=== PATIENT | female | born 1945 | race Caucasian/White ===

== ENCOUNTER → 2017-02-13 | Outpatient (CLI) | payer OTHER ==
[2015-05-19 10:27] VITALS: BP 119/77
[~2017-02-13] MED LIST: ATORVASTATIN CA80 MG PO; FENO54TA PO; HYDR25TA9 PO; INSU100C4 SQ; INSU100V13 SQ; LEVO175T5 PO; LIRA0.6P2 SQ; LISI10TA2 PO; METF10002 PO; PARO40TA3 PO; ZOLP10TA4 PO
--- NOTE | 2017-02-13 12:39 | CARD ---
APPROVED REPORT EXAM: Two-dimensional and M-mode echocardiogram with Doppler and color Doppler. Other Information Quality : GoodHR: 62bpm Rhythm : NSR INDICATION Abnormal ECG 2D DIMENSIONS RVDd2.5 (2.9-3.5cm)Left Atrium(2D)4.5 (1.6-4.0cm) IVSd1.2 (0.7-1.1cm)Aortic Root(2D)2.4 (2.0-3.7cm) LVDd4.5 (3.9-5.9cm)LVOT Diameter2.4 (1.8-2.4cm) PWd1.2 (0.7-1.1cm)LVDs3.1 (2.5-4.0cm) FS (%) 30.7 %SV53.2 ml LVEF(%)58.4 (>50%) Aortic Valve AoV Peak Anthony.282.0cm/sAoV VTI66.3cm AO Peak GR.31.8mmHgLVOT Peak Anthony.112.3cm/s AO Mean GR.19mmHgAVA (VMAX)1.85cm2 Mitral Valve MV E Glqeihfw845.9cm/sMV E Peak Gr.8mmHg MV DECEL [id number] A Kjmjwnce961.0cm/s MV E Mean Gr.4mmHgE/A Ratio0.9 MV A Toxmoiwa988ur Pulmonary Valve PV Peak Zytbjooc79.0cm/s Tricuspid Valve TR P. Jdarldiq974pd/sTR Peak Gr.34mmHg Pulmonary Vein S1 Swbpgdxv58.1cm/sD2 Mzpxqkri74.6cm/s PVa kfnyisnf80ixfn LEFT VENTRICLE The left ventricle is normal size. There is mild concentric left ventricular hypertrophy. The left ve ntricular systolic function is normal and the ejection fraction is within normal range. The Ejection Fraction is 60-65%. There is normal LV segmental wall motion. Transmitral Doppler flow pattern is Gra de I-abnormal relaxation pattern. RIGHT VENTRICLE The right ventricle is normal size. There is normal right ventricular wall thickness. The right ventr icular systolic function is normal. ATRIA The left atrium is moderately dilated. The right atrium size is normal. The interatrial septum is int act with no evidence for an atrial septal defect or patent foramen ovale as noted on 2-D or Doppler i maging. AORTIC VALVE The aortic valve is severely sclerotic. The aortic valve is trileaflet. Doppler and Color Flow reveal ed mild aortic regurgitation. Calculated aortic valve area is 1.8 cm2 with maximum pressure gradient of 32 mmHg and mean pressure gradient of 19 mmHg. *Suspect that aortic stenosis is more moderate, dop pler tracings are suboptimal. MITRAL VALVE Mitral annular calcification is moderate. There is no evidence of mitral valve prolapse. There is no mitral valve stenosis. Doppler and Color Flow revealed mild mitral regurgitation. TRICUSPID VALVE Doppler and Color Flow revealed trace tricuspid regurgitation. The pulmonary artery systolic pressure is estimated at 37 mmHg. There is mild pulmonary hypertension. PULMONIC VALVE Doppler and Color Flow revealed no pulmonic valvular regurgitation. There is no pulmonic valvular tashi nosis. GREAT VESSELS The aortic root is normal in size. The ascending aorta is normal in size. The pulmonary artery is nor mal. The IVC is normal in size and collapses >50% with inspiration. PERICARDIAL EFFUSION There is no evidence of significant pericardial effusion. Critical Notification Critical Value: No <Conclusion> The left ventricular systolic function is normal and the ejection fraction is within normal range. Th e Ejection Fraction is 60-65%. There is normal LV segmental wall motion. The left atrium is moderately dilated. Calculated aortic valve area is 1.8 cm2 with maximum pressure gradient of 32 mmHg and mean pressure g radient of 19 mmHg. *Suspect that aortic stenosis is more moderate, doppler tracings are suboptimal. Doppler and Color Flow revealed mild mitral regurgitation. Consider ULICES or repeat TTE if clinically indicated.
== END | disposition home or self-care (01) ==
LOC: ECHO 07:59
PROVIDERS: ATTEND Internal Medicine Cardiovascular Disease
DX: I35.0 Nonrheumatic aortic (valve) stenosis (principal); I51.7 Cardiomegaly; I35.1 Nonrheumatic aortic (valve) insufficiency; I34.0 Nonrheumatic mitral (valve) insufficiency; I27.2 Other secondary pulmonary hypertension
CPT/HCPCS: 93306

== ENCOUNTER → 2017-03-22 | Outpatient (CLI) | payer OTHER ==
[2015-05-19 10:27] VITALS: BP 119/77
[~2017-03-22] MED LIST changes: +METF-620 PO; -METF10002 PO; +REGADENOSON 0.4 MG/5 ML DISP.SYRIN. IV ONE
--- NOTE | 2017-03-22 10:36 | RAD ---
APPROVED REPORT Patient Location : OUT-PATIENT Indications Lower Extremity Pain : Bilateral Varicose Veins Skin Changes HISTORY OF SIGNIFICANT REFLUX SEEN IN 07/2013. RECOMMENDED ABLATION. PT NEVER SCHEDULED. Deep System Deep Venous Thrombosis present : No Deep Venous Reflux present : Bilateral Greater Saphenous Veins (GSV) Significant venous relux noted in the RIGHT GSV at the following levels : ALL Significant venous relux noted in the LEFT GSV at the following levels : ALL Accessory Veins Right Anterior Accessory Vein : Present : Yes Leftt Anterior Accessory Vein : Present : Yes Right Posterior Accessory Vein : Present : Yes Left Posterior Accessory Vein : Present : Yes Findings Burnett scale images of the bilateral greater and lesser saphenous veins were obtained in limited fashio n and they do not reveal any evidence of thrombus. The right great saphenous vein measures approximately 6 mm at the saphenofemoral junction and has a r eflux time of 3 seconds. The left great saphenous vein measures approximately 8 mm at the saphenofemo ral junction and has a reflux time of 3 seconds. The bilateral lesser saphenous veins are not clearly visualized but spectral waveforms are suggestive of reflux of greater than 2 seconds. Multiple bilateral perforators are noted in the lower extremities with perforators on the right side approximately 20 cm up in 7 cm back as well as 32 cm up in 1070 his back. On the left there are perfo rators 17 cm up in 7 cm back as well as 34 cm up in 11 cm back with diameters of approximately 2-3 mm . Critical Notification Critical Value: No <Conclusion> Venous reflux disease noted in the bilateral greater saphenous veins and lesser saphenous veins. Multiple perforators noted bilaterally.
--- NOTE | 2017-03-22 14:38 | RAD ---
APPROVED REPORT Test Type: Pharmacological Stress Nurse/Tech: ruben mejia Test Indications: SOA Cardiac History: HTN, SEE EHR Medications: SEE EHR Medical History: DIABETES, SEE EHR Resting ECG: SR Resting Heart Rate: 68 bpm Resting Blood Pressure: 133/75mmHg Pretest Chest Pain: No chest pain Nurse/Tech Notes LUNG SOUNDS CLEAR, S1S2 WNL. Consent: The procedure was explained to the patient in lay terms. Informed consent was witnessed. Elliot eout was entered into [employer]. History and Stress Test performed by SUMAYA Crane Pharm. Details Pharmacologic stress testing was performed using 0.4mg per 5ml of regadenoson given intravenously ove r 7-10 seconds. Stress Symptoms FACIAL FLUSHING, HEADACHE. POST EXERCISE Reason for Termination: Infusion complete Max HR: 117 bpm Max Blood Pressure: 133/75mmHg Chest Pain: No. Arrhythmia: No. ST Change: No. INTERPRETATION Stress EKG Conclusion: Baseline EKG showed sinus rhythm. No ischemic changes at peak stress. No arr hythmias. Imaging Protocol IMAGE PROTOCOL: Rest Tc-99m/stress Tc-99m 1 day Rest: Stress: Viability: Radiopharm.Tc99m SonmmksypBt90z Sestamibi Wiej15fAu 35.1mCi Duration 15min. 10min. Img Date 03/22/2017 03/22/2017 Inj-Img Penz56kxf. 60min. Rest Admin Site:IV - Right HandAdministrator:RT Stephanie (R)(N) Stress Admin Site: IV - Right HandAdministrator: SUMAYA Crane STRESS DATA End Diast. Vol.105.0mlAv. Heart Rate75.0bpm End Syst. Vol.24.0mlCO Index BSA0.0L/min Myocardial Jvzw824.0gEject. Cpqghwkl57.0% Stress Rates Pk. Fill Rate3.83EDV/secLVtime Pk. Fill 233.63msec Pk. Empty Rate4.67ESV/secLVtime Pk. Axpou429.93msec 11/28 Pk. Fill1.07EDV/sec Stress Scores Regional WT1.00Summed WT12.00 Regional WM0.00Summed WM0.00 Study quality was good. Left Ventricular size was Normal at Rest and Stress. Lung uptake was Normal. Left Ventricular ejection fraction is 77%. The rest and stress images show normal perfusion, normal contraction and thickening. LV Perf. Quant 17 Seg. SSS7.00 17 Seg. SRS0.00 17 Seg. SDS7.00 Stress Defect Extent (% LAD)1.30Rest Defect Extent (% LAD)0.00Rev. Defect Extent (% LAD)1.30 Stress Defect Extent (% LCX) 55.00Rest Defect Extent (% LCX)0.00Rev. Defect Extent (% LCX)55.00 Stress Defect Extent (% RCA)0.00Rest Defect Extent (% RCA)0.00Rev. Defect Extent (% RCA)0.00 Stress Defect Extent (% MARTHA)10.20Rest Defect Extent (% MARTHA)0.00Rev. Defect Extent (% MARTHA)10.20 Conclusion 1. Regadenoson cardioisotope stress test did not show any evidence of ischemia or infarct. 2. Normal left ventricular systolic function with ejection fraction calculated at 77%. 3. Low risk for cardiac events.
== END | disposition home or self-care (01) ==
LOC: US 08:26
PROVIDERS: ATTEND Internal Medicine Cardiovascular Disease
DX: R06.09 Other forms of dyspnea (principal); I87.2 Venous insufficiency (chronic) (peripheral); I10 Essential (primary) hypertension
CPT/HCPCS: 78452; 93017; 93970; 96374; 96375; 96376; A9500; J2785

== ENCOUNTER 2017-07-05 15:52 | Emergency (ER) | payer OTHER ==
[~2017-07-05] VITALS: Ht 172.7 cm; Wt 98.9 kg
[~2017-07-05 15:52] MED LIST changes: -REGADENOSON 0.4 MG/5 ML DISP.SYRIN. IV ONE
--- NOTE | 2017-07-05 17:13 | PHYS DOC ---
Past Medical History Past Medical History: Anxiety, Diabetes-Type II, High Cholesterol, Hypertension Past Surgical History: Hysterectomy Additional Past Surgical Histo: thyroid Alcohol Use: None Drug Use: None Adult General Chief Complaint Chief Complaint: [facility] PA[facility] HPI Patient is a 71 year old female with history of hypertension, high cholesterol , diabetes type 2, who presents with moderate bilateral low back pain radiating into the left lower extremity that began a week ago after she lifted a case of Pepsi, patient denies any numbness or tingling to bilateral lower extremities. Patient states she followed up with a chiropractor. She states she was seen by the PCP a couple days ago and was instructed to return to the ED if she develops any loss of bowel/bladder function. Patient states she currently cannot make it to the bathroom. She states every time she attempts to get to the bathroom she avoids on herself and has a bowel movement on herself. She states she can feel she has to use the bathroom but pain is limiting her efforts to make it to the bathroom on time. She is denying any numbness or tingling to perineum area. Patient also states she is unable to stand up straight. She states she would like to find as is why the symptoms are present and on going for one week. She states she has tried taking hydrocodone with no relief. PCP Gareth Murrieta. Review of Systems Review of Systems Constitutional: Denies fever or chills [] Eyes: Denies change in visual acuity, redness, or eye pain [] HENT: Denies nasal congestion or sore throat [] Respiratory: Denies cough or shortness of breath [] Cardiovascular: No additional information not addressed in HPI [] GI: Denies abdominal pain, nausea, vomiting, bloody stools or diarrhea [] : Denies dysuria or hematuria [] Musculoskeletal: Back pain with cauda equina syndrome symptoms. Integument: Denies rash or skin lesions [] Neurologic: Denies headache, focal weakness or sensory changes [] Endocrine: Denies polyuria or polydipsia [] Current Medications Current Medications Allergies Allergies Allergies Coded Allergies Type Severity Reaction Last Updated Verified No Known Allergies Allergy Unknown 05/19/15 Yes Physical Exam Physical Exam Constitutional: Well developed, well nourished, no acute distress, non-toxic appearance. [] HENT: Normocephalic, atraumatic, bilateral external ears normal, oropharynx moist, no oral exudates, nose normal. [] Eyes: PERRLA, EOMI, conjunctiva normal, no discharge. [] Neck: Normal range of motion, no tenderness, supple, no stridor. [] Cardiovascular:Heart rate regular rhythm, no murmur [] Lungs & Thorax: Bilateral breath sounds clear to auscultation [] Abdomen: Bowel sounds normal, soft, no tenderness, no masses, no pulsatile masses. [] Skin: Warm, dry, no erythema, no rash. [] Back: Diffuse paraspinal muscle tenderness to the bilateral lumbar spine, worse on the left SI joint, no midline lumbar spine tenderness, no CVA tenderness. Rectal exam with normal rectal tone Extremities: No tenderness, no cyanosis, no clubbing, ROM intact, no edema. [] Neurologic: Alert and oriented X 3, normal motor function, normal sensory function, no focal deficits noted. [] Psychologic: Affect normal, judgement normal, mood normal. [] Current Patient Data Vital Signs Vital Signs Date Time Temp Pulse Resp B/P (MAP) Pulse Ox O2 Delivery O2 Flow Rate FiO2 07/05/17 17:08 98.1 70 20 97 Room Air 98.1 EKG EKG [] Radiology/Procedures Radiology/Procedures [] Course & Med Decision Making Course & Med Decision Making Pertinent Labs and Imaging studies reviewed. (See chart for details) Patient is in the ED with complaints of low back pain that began a week ago after lifting a case of Pepsi. She states for the last couple days (2) she has developed bowel and bladder incontinence. She states she is not able to walk up Straight. We did attempt to call patient's PCP with no success. 17:[address] Livingston who is in the Ed to see her. Rectal exam was done with normal rectal tone. MRI ordered and Consult done for neurosurgery. 17:[address] Little who will f/u with patient. Dr. Little Neurosurgery came and saw patient and requested we transfer her out because our MRI machine is down. 19:15 Spoke with transfer line 19:[address] Ribeiro neurosurgeon at [facility], he states we need to do a CT myelogram first, then we can call him with results. He states one neurosurgeon should be able to know how to take care of this patient. 19:[address] Little. We agreed we should try a different hospital because we do not have a MRI and urologist. Neither is a CT myelogram the appropriate care for this patient. 20: 05 Call placed at [facility] transfer line 20:20 Dr. Flanagan accepted patient at [facility]. Transfer by EMS Dragon Disclaimer Dragon Disclaimer This electronic medical record was generated, in whole or in part, using a voice recognition dictation system. Departure Departure Impression: Primary Impression: Acute low back pain Additional Impression: Cauda equina syndrome Disposition: 05 TRANSFER OTHER Condition: STABLE Referrals: EVITA PATRICK (PCP) Problem Qualifiers Primary Impression: Acute low back pain Back pain laterality: right Sciatica presence: with sciatica Sciatica laterality: sciatica of left side Qualified Codes: M54.42 - Lumbago with sciatica, left side ABDIEL DORSEY BR[employer]GE GAME DIRECTOR Jul 05, 2017 17:13
[2017-07-05] MEDS ORDERED: ACETAMINOPHEN 325 MG TABLET. PO PRN (17:45)
[2017-07-05] MEDS ORDERED: DEXTROSE 50% 25 GM / 50ML DISP.SYRIN. IV PRN (17:45)
[2017-07-05] MEDS ORDERED: ONDANSETRON PF 4 MG/2 ML VIAL. IV PRN (17:45)
[2017-07-05] MEDS ORDERED: diazePAM 5 MG TABLET PO PRN (18:00)
[2017-07-05] MEDS: MORPHINE SULFATE 4 MG/ML DISP.SYRIN. IV PRN ×2 (18:19→19:50)
[2017-07-05 18:21] LABS: BASO # 0.1 x10^3/uL (0.0-0.2); BASO % 1 % (0-3); EOS % 1 % (0-3); HEMATOCRIT 46.9 % (36.0-47.0); HEMOGLOBIN 15.5 g/dL (12.0-15.5); LYMPH # 3.3 x10^3/uL (1.0-4.8); LYMPH % 23 % (24-48); MEAN CORPUSCULAR HEMOGLOBIN 28 pg (25-35); MEAN CORPUSCULAR HGB CONC 33 g/dL (31-37); MEAN CORPUSCULAR VOLUME 83 fL (79-100); MONO % 6 % (0-9); NEUT % 70 % (31-73); PLATELET COUNT 306 x10^3/uL (140-400); RED BLOOD COUNT 5.63 x10^6/uL (3.50-5.40); WHITE BLOOD COUNT 14.5 x10^3/uL (4.0-11.0)
[2017-07-05 18:31] LABS: INR 0.9 (0.8-1.1); PROTHROMBIN TIME PATIENT 11.4 SEC (11.7-14.0)
[2017-07-05 18:33] LABS: CALCIUM 10.4 mg/dL (8.5-10.1); CREATININE 0.9 mg/dL (0.6-1.0); GFR 62.1; POTASSIUM 3.4 mmol/L (3.5-5.1)
[2017-07-05] MEDS ORDERED: DEXAMETHASONE SOD PHOS 20 MG/5 ML VIAL. IV STA (18:42)
[2017-07-05] MEDS ORDERED: MORPHINE SULFATE 4 MG/ML DISP.SYRIN. ONE (19:45)
[2017-07-05] MEDS ORDERED: MORPHINE SULFATE 4 MG/ML DISP.SYRIN. IV PRN (20:30)
[2017-07-05 20:32] VITALS: BP 158/74
--- NOTE | 2017-07-05 21:35 | HP ---
ADMIT DATE: 07/05/2017 CHIEF COMPLAINT: Back pain. HISTORY OF PRESENT ILLNESS: The patient is a pleasant elderly female who has acute on chronic back pain. Now, she states she has some problems with urinary incontinence and possible bowel incontinence as well. I have discussed the case with the ER nurse practitioner. We are going to admit the patient and consult Neurosurgery. PAST MEDICAL HISTORY: Anxiety, depression, hyperlipidemia, hypertension, hysterectomy, thyroid disease. ALLERGIES: None. FAMILY HISTORY: Hypertension. SOCIAL HISTORY: She does not drink, smoke or take drugs. MEDICATIONS: Reviewed. REVIEW OF SYSTEMS: GENERAL: No history of weight change, weakness or fevers. SKIN: No bruising, hair changes or rashes. EYES: No blurred, double or loss of vision. NOSE AND THROAT: No history of nosebleeds, hoarseness or sore throat. HEART: No history of palpitations, chest pain or shortness of breath on exertion. LUNGS: Denies cough, hemoptysis, wheezing or shortness of breath. GASTROINTESTINAL: Denies changes in appetite, nausea, vomiting, diarrhea or constipation. GENITOURINARY: She complains of incontinence. NEUROLOGIC: She complains of weakness. PSYCHIATRIC: No history of panic, anxiety or depression. ENDOCRINE: No history of heat or cold intolerance, polyuria or polydipsia. EXTREMITIES: Denies muscle weakness, joint pain, pain on walking or stiffness. PHYSICAL EXAMINATION: VITAL SIGNS: Temperature afebrile, pulse , respirations 18, blood pressure 166/79. GENERAL: She is alert. HEART: Normal S1, S2. LUNGS: Clear. ABDOMEN: Soft, positive bowel sounds. EXTREMITIES: Trace edema. SKIN: No rashes. ENDOCRINE: No thyromegaly. LYMPHATICS: No cervical nodes. HEMATOPOIETIC: No bruising. ASSESSMENT AND PLAN: Acute on chronic back pain with radiculopathy and possible early cauda equina syndrome. We are going to admit the patient and consult Neurosurgery. Continue home medicines, PT/OT. ELDER MCCARTY DO DR: GEOVANNA/jey JOB#: [id number] / [id number]
== END 2017-07-05 21:10 | disposition short-term general hospital (02) ==
LOC: ER 15:52 → 6 SOUTH 17:15 → UNDOADMIN 17:15 → ER 18:30 → UNDODISIN 19:15 → ER 21:10
DX: M54.42 Lumbago with sciatica, left side (principal); G83.4 Cauda equina syndrome; F41.9 Anxiety disorder, unspecified; E11.9 Type 2 diabetes mellitus without complications; E78.00 Pure hypercholesterolemia, unspecified; I10 Essential (primary) hypertension; E07.9 Disorder of thyroid, unspecified; E78.5 Hyperlipidemia, unspecified; F32.9 Major depressive disorder, single episode, unspecified; G89.29 Other chronic pain; Z90.710 Acquired absence of both cervix and uterus
CPT/HCPCS: 36415; 80048; 85027; 85610; 85730; 96374; 96375; 96376; 99285; J1100; J2270

== ENCOUNTER → 2017-09-19 | Outpatient (CLI) | payer OTHER ==
--- NOTE | 2017-09-19 16:58 | RAD ---
APPROVED REPORT Bilateral Lower Extremity Venous Study for DVT Patient Location: OUT-PATIENT Indications S/P B/L GSV ABLATIONS AND LT LSV ABLATION Vein Imaging (Right) CFV (R): Compressible SFJ (R): Compressible FEM (R): Compressible POP (R): Compressible DFV (R): Compressible PTV (R): Spontaneous Peroneals (R): Spontaneous Vein Imaging (Left) CFV (L): Compressible SFJ (L): Compressible FEM (L): Compressible POP (L): Compressible DFV (L): Compressible PTV (L): Spontaneous Peroneals (L): Spontaneous Doppler Evaluation (Right) CFV (R): Spontaneous POP (R):Spontaneous Doppler Evaluation (Left) CFV (L):Spontaneous POP (L):Spontaneous Findings Grayscale images of the bilateral greater saphenous veins do not reveal any evidence of flow and ther e is thrombus noted consistent with recent ablation. The bilateral saphenofemoral junctions do not reveal any evidence of thrombus extension from the grea t saphenous vein. The common femoral vein, superficial femoral vein and popliteal veins appear to be compressible and do not reveal any evidence of thrombus on antunez scale images bilaterally. The below-k nee veins are not well visualized but appears so spontaneous flow. Otherwise color Doppler and spectr al imaging does not reveal any obstruction to flow in the deep venous system of the lower extremities . Critical Notification Critical Value: No <Conclusion> Negative for DVT in the bilateral lower extremities. Successful bilateral great saphenous vein ablation. Successful left lesser saphenous vein ablation.
== END | disposition home or self-care (01) ==
LOC: US 10:57
PROVIDERS: ATTEND Internal Medicine Cardiovascular Disease
DX: I82.493 Acute embolism and thrombosis of other specified deep vein of lower extremity, bilateral (principal)
CPT/HCPCS: 93970

== ENCOUNTER → 2018-02-27 | Outpatient (CLI) | payer OTHER | END | disposition home or self-care (01) | LOC: KCIC MRI 12:10 | DX: M51.37 Other intervertebral disc degeneration, lumbosacral region (principal); M43.16 Spondylolisthesis, lumbar region | CPT/HCPCS: 72148 ==

== ENCOUNTER → 2018-04-25 | Outpatient (CLI) | payer OTHER | END | disposition home or self-care (01) | LOC: KCIC US 07:50 | DX: K76.0 Fatty (change of) liver, not elsewhere classified (principal); R16.0 Hepatomegaly, not elsewhere classified | CPT/HCPCS: 76700 ==

== ENCOUNTER → 2018-05-27 | Outpatient (CLI) | payer OTHER ==
[~2018-05-27] MED LIST changes: -ATORVASTATIN CA80 MG PO; -FENO54TA PO; +GELATIN SPONGE SIZE 12-7MM SPONGE.; -HYDR25TA9 PO; -INSU100C4 SQ; -INSU100V13 SQ; -LEVO175T5 PO; +LIDOCAINE WITH 8.4% SOD BICARB 3 ML DISP.SYRIN.; -LIRA0.6P2 SQ; -LISI10TA2 PO; -METF-620 PO; +MIDAZOLAM HCL/PF 2 MG/2 ML VIAL.; -PARO40TA3 PO; -ZOLP10TA4 PO; +fentaNYL PF VIAL 100 MCG/2 ML VIAL
[2018-05-27 09:25] LABS: ADD MAN DIFF? NO
[2018-05-27 09:27] LABS: BASO % 0 % (0-3); EOS # 0.1 x10^3/uL (0.0-0.7); EOS % 1 % (0-3); HEMATOCRIT 32.5 % (36.0-47.0); HEMOGLOBIN 10.8 g/dL (12.0-15.5); LYMPH # 1.1 x10^3/uL (1.0-4.8); LYMPH % 11 % (24-48); MEAN CORPUSCULAR HEMOGLOBIN 27 pg (25-35); MEAN CORPUSCULAR HGB CONC 33 g/dL (31-37); MEAN CORPUSCULAR VOLUME 80 fL (79-100); MONO # 0.6 x10^3/uL (0.0-1.1); MONO % 6 % (0-9); NEUT # 8.1 x10^3uL (1.8-7.7); NEUT % 81 % (31-73); PLATELET COUNT 306 x10^3/uL (140-400); RED BLOOD COUNT 4.05 x10^6/uL (3.50-5.40); RED CELL DISTRIBUTION WIDTH 14.8 % (11.5-14.5)
[2018-05-27 09:42] LABS: INR 1.2 (0.8-1.1); PARTIAL THROMBOPLASTIN TIME 28 SEC (24-38); PROTHROMBIN TIME PATIENT 14.3 SEC (11.7-14.0)
[2018-05-27] MEDS: GELATIN SPONGE SIZE 12-7MM SPONGE. TP (10:15)
[2018-05-27] MEDS: MIDAZOLAM HCL/PF 2 MG/2 ML VIAL. IV (10:24)
[2018-05-27] MEDS: fentaNYL PF VIAL 100 MCG/2 ML VIAL IV (10:25)
[2018-05-27] MEDS: LIDOCAINE WITH 8.4% SOD BICARB 3 ML DISP.SYRIN. IJ (10:25)
== END ==
LOC: INTRAD 08:37
DX: C78.7 Secondary malignant neoplasm of liver and intrahepatic bile duct (principal); C80.1 Malignant (primary) neoplasm, unspecified; K72.90 Hepatic failure, unspecified without coma; I10 Essential (primary) hypertension; K21.9 Gastro-esophageal reflux disease without esophagitis; Z90.710 Acquired absence of both cervix and uterus; Z90.721 Acquired absence of ovaries, unilateral; M19.90 Unspecified osteoarthritis, unspecified site; E11.9 Type 2 diabetes mellitus without complications; E03.9 Hypothyroidism, unspecified; F32.9 Major depressive disorder, single episode, unspecified; F41.9 Anxiety disorder, unspecified; F17.200 Nicotine dependence, unspecified, uncomplicated; D64.9 Anemia, unspecified; Z98.890 Other specified postprocedural states; Z79.4 Long term (current) use of insulin; Z79.899 Other long term (current) drug therapy
CPT/HCPCS: 36415; 47000; 76942; 85025; 85610; 85730; 88307; 88341; 88342; 99152; 99153; J2250; J3010

== ENCOUNTER 2018-06-18 07:01 | Observation (INO) | payer OTHER ==
[~2018-06-18] VITALS: Ht 172.7 cm; Wt 81.2 kg
[2018-06-18] VITALS (32 sets, daily range): BP systolic 90–154; BP diastolic 43–89
[~2018-06-18 07:01] MED LIST changes: +ALPR0.254 PO; +ATORVASTATIN CA80 MG PO; +DRON5CAP2 PO; +FENO54TA PO; -GELATIN SPONGE SIZE 12-7MM SPONGE.; +HYDR25TA9 PO; +INSU100C4 SQ; +INSU100V13 SQ; +LEVO175T5 PO; -LIDOCAINE WITH 8.4% SOD BICARB 3 ML DISP.SYRIN.; +LIRA0.6P2 SQ; +LISI10TA2 PO; +METF10003 PO; -MIDAZOLAM HCL/PF 2 MG/2 ML VIAL.; +OMEP40CA5 PO; +OXYC-323 PO; +OXYC15TA PO; +PARO40TA3 PO; +PROC5TAB14 PO; +TIZA4TAB PO; +ZOLP10TA4 PO; -fentaNYL PF VIAL 100 MCG/2 ML VIAL
[2018-06-18 07:57] LABS: BASO # 0.1 x10^3/uL (0.0-0.2); BASO % 0 % (0-3); EOS # 0.1 x10^3/uL (0.0-0.7); EOS % 1 % (0-3); HEMOGLOBIN 12.1 g/dL (12.0-15.5); LYMPH # 1.4 x10^3/uL (1.0-4.8); LYMPH % 9 % (24-48); MEAN CORPUSCULAR HEMOGLOBIN 26 pg (25-35); MEAN CORPUSCULAR HGB CONC 32 g/dL (31-37); MEAN CORPUSCULAR VOLUME 81 fL (79-100); MONO # 0.9 x10^3/uL (0.0-1.1); MONO % 6 % (0-9); NEUT # 12.7 x10^3uL (1.8-7.7); NEUT % 84 % (31-73); PLATELET COUNT 306 x10^3/uL (140-400); RED CELL DISTRIBUTION WIDTH 17.1 % (11.5-14.5); WHITE BLOOD COUNT 15.2 x10^3/uL (4.0-11.0)
[2018-06-18] MEDS ORDERED: IOHEXOL 240 MG/ML 50ML VIAL. ONE (08:00)
[2018-06-18] MEDS ORDERED: LIDOCAINE WITH 8.4% SOD BICARB 3 ML DISP.SYRIN. ONE (08:00)
[2018-06-18] MEDS ORDERED: LIDOCAINE 2% 20 ML VIAL. ONE (08:00)
[2018-06-18 08:04] LABS: PROTHROMBIN TIME PATIENT 13.8 SEC (11.7-14.0)
[2018-06-18] MEDS ORDERED: fentaNYL PF VIAL 100 MCG/2 ML VIAL ONE ×2 (08:08→10:10)
[2018-06-18] MEDS ORDERED: MIDAZOLAM HCL/PF 2 MG/2 ML VIAL. ONE (08:08)
[2018-06-18] MEDS ORDERED: fentaNYL PF VIAL 100 MCG/2 ML VIAL IV ONE (08:15)
[2018-06-18] MEDS ORDERED: IOHEXOL 240 MG/ML 50ML VIAL. IJ ONE (08:15)
[2018-06-18] MEDS ORDERED: MIDAZOLAM HCL/PF 2 MG/2 ML VIAL. IV ONE (08:15)
[2018-06-18 08:16] LABS: CALCIUM 8.8 mg/dL (8.5-10.1); CREATININE 1.3 mg/dL (0.6-1.0); GFR 40.5; POTASSIUM 3.6 mmol/L (3.5-5.1)
[2018-06-18] MEDS ORDERED: CONTRAST GIVEN. MC PRN (08:30)
[2018-06-18] MEDS ORDERED: LIDOCAINE WITH 8.4% SOD BICARB 3 ML DISP.SYRIN. IJ ONE (08:45)
[2018-06-18] MEDS ORDERED: ETHYL ALCOHOL 98% 5 ML VIAL. IJ ONE (09:00)
[2018-06-18] MEDS ORDERED: LIDOCAINE 2% 20 ML VIAL. IJ ONE (10:30)
[2018-06-18] MEDS ORDERED: oxyCODONE IR 5 MG TABLET PO PRN ×2 (11:45→14:00)
[2018-06-18] MEDS ORDERED: MAG HYDROX/ALUMINUM HYD/SIMETH 30 ML ORAL.SUSP PO PRN (11:45)
[2018-06-18] MEDS ORDERED: ACETAMINOPHEN 325 MG TABLET. PO PRN (11:45)
[2018-06-18] MEDS ORDERED: PROCHLORPERAZINE 10 MG/2 ML VIAL. IV PRN (11:45)
[2018-06-18] MEDS ORDERED: PROCHLORPERAZINE 25 MG SUPP.RECT. PR PRN (11:45)
[2018-06-18] MEDS: IV NORMAL SALINE 1000ML BAG 1,000 ML IV SCH ×2 (11:45→20:55)
[2018-06-18] MEDS ORDERED: ONDANSETRON PF 4 MG/2 ML VIAL. IV PRN (11:45)
[2018-06-18] MEDS ORDERED: MAGNESIUM HYDROXIDE 2,400 MG/30 ML ORAL.SUSP. PO PRN (11:45)
[2018-06-18] MEDS ORDERED: CALCIUM CARBONATE 500 MG TAB.CHEW PO PRN (11:45)
[2018-06-18] MEDS ORDERED: IBUPROFEN 400 MG TABLET. PO PRN (11:45)
[2018-06-18] MEDS ORDERED: MORPHINE SULFATE 2 MG/ML VIAL. IV PRN (11:45)
[2018-06-18] MEDS ORDERED: PROCHLORPERAZINE 5 MG TABLET. PO PRN (12:00)
--- NOTE | 2018-06-18 12:55 | PDOC1 ---
History and Physical Date of Admission Date of Admission DATE: 06/18/18 TIME: 12:48 Identification/Chief Complaint Chief Complaint Low blood pressure post celiac block plexus Source Source: Caregiver, Chart review, Patient History of Present Illness History of Present Illness 72-year-old female with metastatic pancreatic cancer, known patient of Dr. Ch, here for scheduled celiac block because of unrelenting abdominal pain and back pain. Procedure was successful by IR, but post procedure course remarkable for hypotension which can be expected from the procedure (celiac ganglion block). Patient advised observation admission with IV fluids to address the hypotension. Patient does take blood pressure meds and pain meds at home, I have reconciled these, of course holding off on blood pressure meds. I have started normal saline 125 mL an hour, usual blood pressure 90s per at bedside. I'm seeing the patient at IR, dw IR RN Past Medical History Heme/Onc: Anemia NOS, Cancer, Other (Metastatic pancreatic cancer) Musculoskeletal: low back pain Infectious disease: No pertinent hx Past Surgical History Past Surgical History: No pertinent history Family History Family History: No Significant Social History Smoke: No ALCOHOL: none Drugs: None Current Medications Current Medications Current Medications Lidocaine/Sodium Bicarbonate (Buffered Lidocaine 1%) 3 ml STK-MED ONCE .ROUTE ; Start 06/18/18 at 08:00; Stop 06/18/18 at 08:02; Status DC Iohexol (Omnipaque 240 Mg/ml) 50 ml STK-MED ONCE .ROUTE ; Start 06/18/18 at 08: 00; Stop 06/18/18 at 08:02; Status DC Lidocaine HCl 20 ml STK-MED ONCE .ROUTE ; Start 06/18/18 at 08:00; Stop at 08:02; Status DC Alcohol (Alcohol, Dehydrated 98%) 50 ml 1X ONCE IJ Last administered on at 10:24; Start 06/18/18 at 09:00; Stop 06/18/18 at 09:01; Status DC Midazolam HCl (Versed) 2 mg STK-MED ONCE .ROUTE ; Start 06/18/18 at 08:08; Stop 06/18/18 at 08:09; Status DC Fentanyl Citrate (Fentanyl 2ml Vial) 100 mcg STK-MED ONCE .ROUTE ; Start at 08:08; Stop 06/18/18 at 08:09; Status DC Lidocaine/Sodium Bicarbonate (Buffered Lidocaine 1%) 3 ml 1X ONCE IJ Last administered on 06/18/18at 10:29; Start 06/18/18 at 08:45; Stop 06/18/18 at 08:46 ; Status DC Midazolam HCl (Versed) 2 mg 1X ONCE IV Last administered on 06/18/18at 10:28; Start 06/18/18 at 08:15; Stop 06/18/18 at 08:18; Status DC Fentanyl Citrate (Fentanyl 2ml Vial) 100 mcg 1X ONCE IV Last administered on at 10:28; Start 06/18/18 at 08:15; Stop 06/18/18 at 08:18; Status DC Iohexol (Omnipaque 240 Mg/ml) 50 ml 1X ONCE IJ Last administered on 06/18/18at 10:23; Start 06/18/18 at 08:15; Stop 06/18/18 at 08:18; Status DC Info (CONTRAST GIVEN -- Rx MONITORING) 1 each PRN DAILY PRN MC SEE COMMENTS; Start 06/18/18 at 08:30; Stop 06/20/18 at 08:29 Fentanyl Citrate (Fentanyl 2ml Vial) 100 mcg STK-MED ONCE .ROUTE ; Start at 10:10; Stop 06/18/18 at 10:11; Status DC Lidocaine HCl 20 ml 1X ONCE IJ Last administered on 06/18/18at 10:30; Start at 10:30; Stop 06/18/18 at 10:33; Status DC Ondansetron HCl (Zofran) 4 mg PRN Q6HRS PRN IV NAUSEA/VOMITING; Start 06/18/18 at 11:45; Stop 06/19/18 at 11:44 Prochlorperazine Edisylate (Compazine) 10 mg PRN Q6HRS PRN IV NAUSEA/VOMITING, 2ND CHOICE; Start 06/18/18 at 11:45; Stop 06/19/18 at 11:44 Prochlorperazine (Compazine) 25 mg PRN Q12HR PRN SD NAUSEA/VOMITING; Start at 11:45; Stop 06/19/18 at 11:44 Al Hydroxide/Mg Hydroxide (Mylanta Plus Xs) 30 ml PRN Q3HRS PRN PO HEARTBURN / GAS; Start 06/18/18 at 11:45; Stop 06/19/18 at 11:44 Calcium Carbonate/ Glycine (Tums) 500 mg PRN Q3HRS PRN PO UPSET STOMACH, 2ND CHOICE; Start 06/18/18 at 11:45; Stop 06/19/18 at 11:44 Oxycodone HCl (Roxicodone) 5 mg PRN Q3HRS PRN PO BREAKTHROUGH PAIN; Start 06/18 at 11:45; Stop 06/19/18 at 11:44 Morphine Sulfate (Morphine Sulfate) 2 mg PRN Q2HR PRN IV PAIN; Start 06/18/18 at 11:45; Stop 06/19/18 at 11:44 Acetaminophen (Tylenol) 650 mg PRN Q6HRS PRN PO Headaches, Temp > 101.5F; Start 06/18/18 at 11:45; Stop 06/19/18 at 11:44 Ibuprofen (Motrin) 400 mg PRN Q6HRS PRN PO MILD PAIN; Start 06/18/18 at 11:45; Stop 06/19/18 at 11:44 Docusate Sodium (Colace) 100 mg BID PO ; Start 06/18/18 at 21:00; Stop 06/19/18 at 20:59 Magnesium Hydroxide (Milk Of Magnesia) 2,400 mg PRN Q12HR PRN PO CONSTIPATION, 1ST CHOICE; Start 06/18/18 at 11:45; Stop 06/19/18 at 11:44 Sodium Chloride 1,000 ml @ 100 mls/hr Q10H IV ; Start 06/18/18 at 11:45; Stop 06/19/18 at 11:44 Alprazolam (Xanax) 0.25 mg PRN Q6HRS PRN PO ANXIETY / AGITATION; Start at 12:00; Stop 06/19/18 at 11:59 Levothyroxine Sodium (Synthroid) 175 mcg DAILY PO ; Start 06/19/18 at 09:00; Stop 06/20/18 at 08:59; Status UNV Oxycodone/ Acetaminophen (Percocet 5/325) 1 tab PRN Q6HRS PRN PO PAIN; Start at 12:00; Stop 06/19/18 at 11:59 Prochlorperazine Maleate (Compazine) 10 mg PRN Q6HRS PRN PO NAUSEA/VOMITING; Start 06/18/18 at 12:00; Stop 06/19/18 at 11:59 Non-Formulary Medication (Dronabinol ) 5 mg BID PO ; Start 06/18/18 at 21:00; Stop 06/19/18 at 20:59; Status UNV Non-Formulary Medication (Insulin Aspart (Novolog)) 100 unit TID SQ ; Start at 14:00; Stop 06/19/18 at 13:59; Status UNV Non-Formulary Medication (Omeprazole ) 1 cap DAILY PO ; Start 06/19/18 at 09:00 ; Stop 06/20/18 at 08:59; Status UNV Non-Formulary Medication (Oxycodone Hcl ) 1 tab PRN Q4HRS PRN PO PAIN; Start at 12:00; Stop 06/19/18 at 11:59; Status UNV Non-Formulary Medication (Paroxetine Hcl ) 1 tab DAILY PO ; Start 06/19/18 at 09 :00; Stop 06/20/18 at 08:59; Status UNV Non-Formulary Medication (Tizanidine Hcl ) 1 tab PRN PO ; Start 06/18/18 at 12: 00; Stop 06/19/18 at 11:59; Status UNV Non-Formulary Medication (Zolpidem Tartrate ) 1 tab QHS PO ; Start 06/18/18 at 21:00; Stop 06/19/18 at 20:59; Status UNV Active Scripts Active Reported Tizanidine Hcl 4 Mg Tablet 1 Tab PO PRN Prochlorperazine Maleate 10 Mg Tablet 1 Tab PO Q6HRS PRN Percocet 5-325 Mg Tablet (Oxycodone/Acetaminophen) 1 Each Tablet 1 Tab PO PRN Q6HRS PRN Oxycodone Hcl 15 Mg Tablet 1 Tab PO PRN Q4HRS PRN Oxycodone Hcl 15 Mg Tablet 1 Tab PO Q12HR Omeprazole 40 Mg Capsule.dr 1 Cap PO DAILY Dronabinol 5 Mg Capsule 5 Mg PO BID Alprazolam 0.25 Mg Tablet 0.25 Mg PO PRN Q6HRS PRN Novolog (Insulin Aspart) 100 Unit/1 Ml Cartridge 100 Unit SQ TID Hydrochlorothiazide Tablet (Hydrochlorothiazide) 25 Mg Tablet 1 Tab PO DAILY Zolpidem Tartrate 10 Mg Tablet 1 Tab PO QHS Paroxetine Hcl 40 Mg Tablet 1 Tab PO DAILY Lisinopril 10 Mg Tablet 1 Tab PO DAILY Levothyroxine Sodium 175 Mcg Tablet 1 Tab PO DAILY Allergies Allergies: Coded Allergies: No Known Allergies (Verified Allergy, Unknown, 05/19/15) ROS Review of System A 14 point ROS was completed with the following noted as positive: Other systems reviewed and negative. \CONSTITUTIONAL: No fever or chills EYES: No recent changes SKIN: No rash or itching CARDIOVASCULAR: No chest pain, syncope, palpitations, or edema RESPIRATORY: No SOB or cough GASTROINTESTINAL: No nausea, vomiting or abdominal pain NEUROLOGICAL: No headaches or weakness ENDOCRINE: No cold or heat intolerance GENITOURINARY: No urgency or frequency of urination MUSCULOSKELETAL: No back pain or joint pain LYMPHATICS: No enlarged lymph nodes PSYCHIATRIC: No anxiety or depression Physical Exam General: Oriented X3, Cooperative, No acute distress, Other (up in chair but appears weak and slightly sleepy) HEENT: Atraumatic, PERRLA, EOMI Lungs: Clear to auscultation, Normal air movement Heart: S1S2, RRR, no thrills, no rubs, no gallops, no murmurs Cardiovascular: S1, S2 Breasts: Normal, Rt breast nml w/o mass, Lt breast nml w/o mass, Nipples normal Abdomen: Normal bowel sounds, Soft, No tenderness, No hepatosplenomegaly, No masses Rectal Exam: not examined PELVIC: Nml ext genitalia Extremities: No clubbing, No cyanosis, No edema, Normal pulses, No tenderness/ swelling Skin: No rashes, No breakdown, No significant lesion Neuro: Normal gait, Normal speech, Strength at 5/5 X4 ext, Normal tone, Sensation intact, Cranial nerves 3-12 NL, Reflexes 2+ Psych/Mental Status: Mental status NL, Mood NL Vitals Vitals Vital Signs Date Time Temp Pulse Resp B/P (MAP) Pulse Ox O2 Delivery O2 Flow Rate FiO2 06/18/18 11:20 87 14 95 Room Air 06/18/18 10:32 2.0 06/18/18 07:40 79.9 92/66 (75) 79.9 Labs Labs Laboratory Tests Test 06/18/18 07:50 White Blood Count 15.2 x10^3/uL (4.0-11.0) Red Blood Count 4.70 x10^6/uL (3.50-5.40) Hemoglobin 12.1 g/dL (12.0-15.5) Hematocrit 38.0 % (36.0-47.0) Mean Corpuscular Volume 81 fL (79-100) Mean Corpuscular Hemoglobin 26 pg (25-35) Mean Corpuscular Hemoglobin Concent 32 g/dL (31-37) Red Cell Distribution Width 17.1 % (11.5-14.5) Platelet Count 306 x10^3/uL (140-400) Neutrophils (%) (Auto) 84 % (31-73) Lymphocytes (%) (Auto) 9 % (24-48) Monocytes (%) (Auto) 6 % (0-9) Eosinophils (%) (Auto) 1 % (0-3) Basophils (%) (Auto) 0 % (0-3) Neutrophils # (Auto) 12.7 x10^3uL (1.8-7.7) Lymphocytes # (Auto) 1.4 x10^3/uL (1.0-4.8) Monocytes # (Auto) 0.9 x10^3/uL (0.0-1.1) Eosinophils # (Auto) 0.1 x10^3/uL (0.0-0.7) Basophils # (Auto) 0.1 x10^3/uL (0.0-0.2) Prothrombin Time 13.8 SEC (11.7-14.0) Prothromb Time International Ratio 1.1 (0.8-1.1) Sodium Level 129 mmol/L (136-145) Potassium Level 3.6 mmol/L (3.5-5.1) Chloride Level 92 mmol/L (98-107) Carbon Dioxide Level 27 mmol/L (21-32) Anion Gap 10 (6-14) Blood Urea Nitrogen 15 mg/dL (7-20) Creatinine 1.3 mg/dL (0.6-1.0) Estimated GFR (Cockcroft-Gault) 40.5 Glucose Level 206 mg/dL (70-99) Calcium Level 8.8 mg/dL (8.5-10.1) Laboratory Tests Test 06/18/18 07:50 White Blood Count 15.2 x10^3/uL (4.0-11.0) Red Blood Count 4.70 x10^6/uL (3.50-5.40) Hemoglobin 12.1 g/dL (12.0-15.5) Hematocrit 38.0 % (36.0-47.0) Mean Corpuscular Volume 81 fL (79-100) Mean Corpuscular Hemoglobin 26 pg (25-35) Mean Corpuscular Hemoglobin Concent 32 g/dL (31-37) Red Cell Distribution Width 17.1 % (11.5-14.5) Platelet Count 306 x10^3/uL (140-400) Neutrophils (%) (Auto) 84 % (31-73) Lymphocytes (%) (Auto) 9 % (24-48) Monocytes (%) (Auto) 6 % (0-9) Eosinophils (%) (Auto) 1 % (0-3) Basophils (%) (Auto) 0 % (0-3) Neutrophils # (Auto) 12.7 x10^3uL (1.8-7.7) Lymphocytes # (Auto) 1.4 x10^3/uL (1.0-4.8) Monocytes # (Auto) 0.9 x10^3/uL (0.0-1.1) Eosinophils # (Auto) 0.1 x10^3/uL (0.0-0.7) Basophils # (Auto) 0.1 x10^3/uL (0.0-0.2) Prothrombin Time 13.8 SEC (11.7-14.0) Prothromb Time International Ratio 1.1 (0.8-1.1) Sodium Level 129 mmol/L (136-145) Potassium Level 3.6 mmol/L (3.5-5.1) Chloride Level 92 mmol/L (98-107) Carbon Dioxide Level 27 mmol/L (21-32) Anion Gap 10 (6-14) Blood Urea Nitrogen 15 mg/dL (7-20) Creatinine 1.3 mg/dL (0.6-1.0) Estimated GFR (Cockcroft-Gault) 40.5 Glucose Level 206 mg/dL (70-99) Calcium Level 8.8 mg/dL (8.5-10.1) VTE Prophylaxis Ordered VTE Prophylaxis Devices: Yes VTE Pharmacological Prophylaxi: Yes Assessment/Plan Assessment/Plan Hypotension post celiac plexus block by IR Metastatic pancreatic cancer with chronic pain Anemia of cancer Plan: IV fluids 125 mL an hour, bolus when necessary Hook To telemetry Observation status HOme meds have been reconciled-hold BP meds Continue by mouth pain meds PT OT Regular diet Seen at IR ISAIAH PALOMO MD Jun 18, 2018 12:54
[2018-06-18] MEDS ORDERED: IV NORMAL SALINE 1000ML BAG 1,000 ML IV SCH (13:00)
[2018-06-18] MEDS ORDERED: POLYETHYLENE GLYCOL 3350 17 GM PACKET. PO PRN (14:00)
[2018-06-18] MEDS ORDERED: NON FORMULARY ITEM (Insulin Aspart (Novolog) 100 UNIT) SQ SCH (14:00)
[2018-06-18] MEDS ORDERED: tiZANidine 4 MG TABLET. PO PRN (14:00)
[2018-06-18] MEDS: PARoxetine 20 MG TABLET PO SCH (14:18)
[2018-06-18] MEDS: LEVOTHYROXINE 175 MCG TABLET PO SCH (14:18)
[2018-06-18] MEDS: ALPRAZolam 0.25 MG TABLET PO PRN ×2 (14:29→20:53)
[2018-06-18] MEDS: oxyCODONE/APAP 5/325 1 TAB TABLET PO PRN ×2 (14:36→20:54)
[2018-06-18] MEDS: DRONABINOL 2.5 MG CAPSULE. PO SCH (16:53)
[2018-06-18] MEDS: INSULIN LISPRO 300 UNITS/3 ML INSULN.PEN. SQ SCH (16:59)
[2018-06-18] MEDS: ZOLPIDEM 5 MG TABLET. PO PRN ×2 (20:54→23:44)
[2018-06-18] MEDS: DOCUSATE SODIUM 100 MG CAPSULE. PO SCH (20:54)
[2018-06-19] MEDS: oxyCODONE/APAP 5/325 1 TAB TABLET PO PRN (03:00)
[2018-06-19] MEDS: ALPRAZolam 0.25 MG TABLET PO PRN (03:00)
[2018-06-19 03:08] VITALS: BP 140/80
[2018-06-19] MEDS: LEVOTHYROXINE 175 MCG TABLET PO SCH (06:44)
[2018-06-19] MEDS: DRONABINOL 2.5 MG CAPSULE. PO SCH (06:44)
[2018-06-19 07:00] VITALS: BP 102/48
[2018-06-19] MEDS ORDERED: PANTOPRAZOLE 40 MG TABLET.DR. PO SCH (07:30)
[2018-06-19] MEDS: INSULIN LISPRO 300 UNITS/3 ML INSULN.PEN. SQ SCH ×2 (08:00→12:00)
[2018-06-19] MEDS: DOCUSATE SODIUM 100 MG CAPSULE. PO SCH (08:43)
[2018-06-19] MEDS: PARoxetine 20 MG TABLET PO SCH (08:43)
[2018-06-19] MEDS: IV NORMAL SALINE 1000ML BAG 1,000 ML IV SCH ×2 (08:44→08:59)
[2018-06-19 11:02] VITALS: BP 95/49
[2018-06-19 13:20] LABS: BASO % 0 % (0-3); EOS # 0.2 x10^3/uL (0.0-0.7); EOS % 1 % (0-3); HEMATOCRIT 33.6 % (36.0-47.0); LYMPH # 1.1 x10^3/uL (1.0-4.8); LYMPH % 9 % (24-48); MEAN CORPUSCULAR HEMOGLOBIN 26 pg (25-35); MEAN CORPUSCULAR HGB CONC 33 g/dL (31-37); MEAN CORPUSCULAR VOLUME 80 fL (79-100); MONO # 0.7 x10^3/uL (0.0-1.1); MONO % 6 % (0-9); NEUT # 9.7 x10^3uL (1.8-7.7); NEUT % 83 % (31-73); PLATELET COUNT 244 x10^3/uL (140-400); RED BLOOD COUNT 4.18 x10^6/uL (3.50-5.40); WHITE BLOOD COUNT 11.6 x10^3/uL (4.0-11.0)
[2018-06-19 13:31] LABS: CREATININE 1.2 mg/dL (0.6-1.0); GFR 44.4; POTASSIUM 3.7 mmol/L (3.5-5.1)
--- NOTE | 2018-06-21 08:45 | RAD ---
CT-guided bilateral celiac neural lysis 06/21/2018 Indication: Patient with pancreatic adenocarcinoma with multifocal hepatic metastasis significant pain most likely relating to visceral malignancy. History of chronic back pain. Discussion: The risks and benefits of the procedure were discussed the patient. Informed consent was obtained. A timeout procedure was performed. The posterior inferior thorax was prepped and draped using sterile barrier technique. 1% lidocaine was administered for local anesthesia. Under intermittent CT guidance a 22-gauge Chiba needle was advanced to the left antecrural space at the level between the celiac artery and superior mesenteric artery. Contrast was administered confirming local infiltration. Small amount of lidocaine was administered. Patient reported improved abdominal pain with this. Subsequently 20 cc of absolute ethanol was instilled. Small amount of saline was used to flush the needle was removed. Similarly attempts were made to advance 22-gauge needles into anetcrural space on the right side. Due to the presence of adjacent structures the needle position was slightly posterior at approximately the level of the aorta, but anterior to the diaphragm. Again contrast in a test dose of local anesthetic was administered with which the patient reports improved pain. 10 cc of additional absolute ethanol was administered. [place] were removed. Manual pressure was held. No immediate complications were identified. The patient was taken to the recovery area in stable condition. Patient's vital signs remained stable. IV fluids were initiated. The patient was admitted for observation. The procedures performed under conscious sedation including continuous cardiopulmonary monitoring via a dedicated sedation nurse. [id number] sedation time: 1.5 hours Impression: CT-guided celiac ganglion neurolysis PQRS Compliance Statement: One or more of the following individualized dose reduction techniques were utilized for this examination: 1. Automated exposure control 2. Adjustment of the mA and/or kV according to patient size 3. Use of iterative reconstruction technique
== END 2018-06-19 12:35 | disposition home or self-care (01) ==
LOC: INTRAD 07:01 → 4 NORTH 07:53
PROVIDERS: ADMIT Internal Medicine; ATTEND Internal Medicine
DX: C25.9 Malignant neoplasm of pancreas, unspecified (principal); D63.0 Anemia in neoplastic disease; I95.9 Hypotension, unspecified; G89.3 Neoplasm related pain (acute) (chronic); Z85.07 Personal history of malignant neoplasm of pancreas
CPT/HCPCS: 36415; 64530; 80048; 82962; 85025; 85610; 96372; 96374; 96375; 97162; 97166; G0378; G0379; G8978; G8979; G8987; G8988; J1815; J2001; J2250; J3010; J3490; J7030; Q0167; Q9966; 99152; 99153